=== PATIENT | female | born 1980 | race Caucasian/White ===

== ENCOUNTER 2016-12-02 20:51 | Emergency (ER) | payer SELFPAY ==
[~2016-12-02] VITALS: Ht 157.5 cm; Wt 75.3 kg
--- NOTE | 2016-12-02 21:10 | NUR ---
PT BIB SELF C/O JULIANA FOOT SWELLING, L WORSE THAN R, X1 MONTH. PT REPORTS HER FEET ARE NOT SWOLLEN IN THE MORNING AND BECOME PROGRESSIVELY MORE SWOLLEN THE DAY GOES ON, DESPITE ELEVATING HER LEGS. ALSO NOTED WITH SMALL SKIN TEAR TO THE MEDIAL ASPECT OF THE L FOOT WHICH PT REPORTS IS FROM "TAPE PULLING OFF". NAD NOTED. DENIES PAIN. RESP EVEN UNLABORED. SKIN WARM NONDIAPHORETIC. PEDAL PULSES AND CAP REFILL WNL. AMBULATORY WITH STEADY GAIT. IN ER BED 11.
--- NOTE | 2016-12-02 21:23 | NUR ---
CALLED [employer] CHIEF TECHNICIAN FOR DOPPLER
[2016-12-02 21:32] LABS: BASOPHILS % (AUTO) 0.2 % (0.0-2.0); EOSINOPHILS # (AUTO) 0.1 /CMM (0.0-0.7); EOSINOPHILS % (AUTO) 1.5 % (0.0-6.0); HEMATOCRIT 38 % (33-45); HEMOGLOBIN 13.1 g/dL (11.5-14.8); LYMPHOCYTES # (AUTO) 3.2 /CMM (0.8-4.8); LYMPHOCYTES % (AUTO) 38.7 % (20.0-44.0); MEAN CORPUSCULAR HEMOGLOBIN 30 PG (26.0-33.0); MEAN CORPUSCULAR HGB CONC 34 g/dl (31.0-36.0); MEAN CORPUSCULAR VOLUME 88 fL (82-100); MONOCYTES # (AUTO) 0.7 /CMM (0.1-1.30); NEUTROPHILS # (AUTO) 4.3 /CMM (1.8-8.9); NEUTROPHILS % (AUTO) 51.6 % (43.0-81.0); PLATELET COUNT (AUTO) 320 /CMM (150-450); RDW COEFFICIENT OF VARIATION 12.6 (11.5-15.0); RED BLOOD CELL COUNT(AUTO) 4.34 MIL/uL (4.0-5.2); WHITE BLOOD COUNT (AUTO) 8.3 K/uL (4.3-11.0)
[2016-12-02 21:50] LABS: CALCIUM, SERUM 8.3 mg/dL (8.5-10.1); CREATININE 0.7 mg/dL (0.6-1.3); POTASSIUM 3.5 mmol/L (3.5-5.1)
[2016-12-02 21:56] LABS: ALBUMIN 3.7 g/dL (3.4-5.0); BILIRUBIN,TOTAL 0.3 mg/dL (0.2-1.0); TOTAL PROTEIN, SERUM 7.1 g/dL (6.4-8.2)
[2016-12-02 23:09] VITALS: BP 128/71
--- NOTE | 2016-12-02 23:09 | NUR ---
Patient discharged to home in stable condition. Written and verbal after care instructions given. Patient verbalizes understanding of instruction. AMBULATORY WITH STEADY GAIT.
== END 2016-12-02 23:10 | disposition home or self-care (01) ==
LOC: ER 20:51
DX: R60.9 Edema, unspecified (principal); Z90.49 Acquired absence of other specified parts of digestive tract
CPT/HCPCS: 36415; 80053; 85025; 93971; 99285; A4606; Z7610

== ENCOUNTER 2017-08-14 15:24 | Emergency (ER) | payer SELFPAY ==
[~2017-08-14] VITALS: Ht 154.9 cm; Wt 63.5 kg
[2017-08-14 15:27] VITALS: BP 104/71
[2017-08-14] MEDS ORDERED: diphenhydrAMINE HCL 25 MG CAPSULE ONE (15:35)
[2017-08-14] MEDS ORDERED: diphenhydrAMINE HCL ELIX 25 MG/10 ML UDC PO ONE (16:00)
== END 2017-08-14 15:45 | disposition home or self-care (01) ==
LOC: ER 15:27
DX: S90.862A Insect bite (nonvenomous), left foot, initial encounter (principal); M79.89 Other specified soft tissue disorders; Z90.49 Acquired absence of other specified parts of digestive tract
CPT/HCPCS: 99282; A4606; Q0163; Z7610